=== PATIENT | male | born 1985 | race African-American/Black ===

== ENCOUNTER 2018-11-22 10:35 | Emergency (ER) | payer SELFPAY ==
[~2018-11-22] VITALS: Ht 167.6 cm; Wt 84.0 kg
[2018-11-22] MEDS ORDERED: IBUPROFEN 600MG TABLET PO ONE (13:00)
[2018-11-22 14:29] VITALS: BP 148/85
== END 2018-11-22 14:31 | disposition home or self-care (01) ==
LOC: ER 10:35
DX: M25.571 Pain in right ankle and joints of right foot (principal); Z98.890 Other specified postprocedural states; X37.1XXA Tornado, initial encounter; Y93.67 Activity, basketball; Y92.310 Basketball court as the place of occurrence of the external cause; Y99.8 Other external cause status
CPT/HCPCS: 73610; 73630; 99283